=== PATIENT | male | born 1960 | race Caucasian/White ===

== ENCOUNTER 2020-07-23 13:35 | Observation (INO) | payer OTHER ==
[2020-07-23 18:08] LABS: BASO % 1.7 % (0-2.0); EOS % 1.3 % (0-4.5); HEMATOCRIT 42.2 % (35.4-49); HEMOGLOBIN 14.7 GM/dL (11.7-16.9); LYMPH % 17.2 % (8-40); MEAN CELL VOLUME 91.5 fl (80-96); MEAN PLT VOLUME 9.6 fl (7.5-11.1); MONO % 6.1 % (3.8-10.2); NEUT % 73.7 % (42.8-82.8); PLATELET COUNT 220 K/MM3 (134-434); RBC 4.61 M/mm3 (4.00-5.60); RDW 13.4 % (11.9-15.9); WHITE BLOOD COUNT 6.3 K/mm3 (4.0-10.0)
[2020-07-23 18:18] LABS: CHLORIDE 106 mmol/L (98-107); SODIUM 139 mmol/L (136-145)
[2020-07-23 18:21] LABS: ALBUMIN 4.2 g/dl (3.4-5.0); ANION GAP 7 MMOL/L (8-16); BLOOD UREA NITROGEN 12.2 mg/dL (7-18); CALCIUM 9.6 mg/dL (8.5-10.1); CO2 27 mmol/L (21-32); GLUCOSE,RANDOM 91 mg/dL (74-106); MAGNESIUM 2.6 mg/dL (1.8-2.4)
[2020-07-23 18:24] LABS: CREATININE 0.7 mg/dL (0.55-1.3); SGOT/AST 26 U/L (15-37); SGPT/ALT 69 U/L (13-61)
[2020-07-23 18:26] LABS: TOT PROT 7.3 g/dl (6.4-8.2)
[2020-07-23 18:27] LABS: ALK PHOS 101 U/L (45-117)
[2020-07-23] MEDS ORDERED: ACETAMINOPHEN 325 MG TABLET (FP) PO PRN (20:48)
[2020-07-24 03:43] VITALS: BMI 26.0
[2020-07-24 07:48] LABS: HEMATOCRIT 41.3 % (35.4-49); HEMOGLOBIN 14.6 GM/dL (11.7-16.9); MCH 32.4 pg (25.7-33.7); MCHC 35.5 g/dl (32.0-35.9); MEAN CELL VOLUME 91.4 fl (80-96); MEAN PLT VOLUME 9.1 fl (7.5-11.1); PLATELET COUNT 211 K/MM3 (134-434); RBC 4.52 M/mm3 (4.00-5.60); RDW 13.2 % (11.9-15.9); WHITE BLOOD COUNT 5.7 K/mm3 (4.0-10.0)
[2020-07-24 08:00] LABS: CHLORIDE 106 mmol/L (98-107); SODIUM 138 mmol/L (136-145)
[2020-07-24 08:06] LABS: ANION GAP 4 MMOL/L (8-16); BLOOD UREA NITROGEN 11.6 mg/dL (7-18); CALCIUM 9.3 mg/dL (8.5-10.1); CO2 29 mmol/L (21-32)
[2020-07-24 08:07] LABS: MAGNESIUM 2.5 mg/dL (1.8-2.4)
[2020-07-24 08:10] LABS: CREATININE 0.7 mg/dL (0.55-1.3); PHOSPHOROUS 4.1 mg/dL (2.5-4.9)
[2020-07-24 08:26] LABS: GLUCOSE,RANDOM 105 mg/dL (74-106)
[2020-07-24] MEDS ORDERED: TAMSULOSIN HCL 0.4 MG CAP PO SCH (08:30)
[2020-07-24 15:05] VITALS: BP 124/64; PULSE 80; TEMP 97.9
[2020-07-24] MEDS ORDERED: ATORVASTATIN CA 80 MG TABLET (FP) PO SCH (22:00)
== END 2020-07-24 15:08 | disposition home or self-care (01) ==
LOC: JER 13:35 → JERBED 18:56 → INTOOBSV 18:56 → J4W 07-24 02:46
PROVIDERS: ADMIT Internal Medicine; ATTEND Internal Medicine
DX: R00.2 Palpitations (principal); R06.02 Shortness of breath; R42 Dizziness and giddiness; E78.5 Hyperlipidemia, unspecified; N40.0 Benign prostatic hyperplasia without lower urinary tract symptoms
CPT/HCPCS: 36415; 71046-TC-FY; 80048; 80053; 82550; 82962; 83735; 84100; 84443; 84484; 85025; 85027; 93005; 93010; 99285-25; C9803; G0378; U0003; U0005

== ENCOUNTER 2022-01-17 11:29 | Emergency (ER) | payer OTHER ==
[2022-01-17 11:49] VITALS: BMI 27.2
[2022-01-17 12:24] LABS: BASO % 0.5 % (0-2.0); EOS % 0.5 % (0-4.5); HEMATOCRIT 43.7 % (35.4-49); HEMOGLOBIN 15.1 GM/dL (11.7-16.9); LYMPH % 26.7 % (8-40); MCH 31.6 pg (25.7-33.7); MCHC 34.6 g/dl (32.0-35.9); MEAN CELL VOLUME 91.4 fl (80-96); MEAN PLT VOLUME 8.6 fl (7.5-11.1); MONO % 6.2 % (3.8-10.2); NEUT % 66.1 % (42.8-82.8); PLATELET COUNT 195 10^3/uL (134-434); RBC 4.79 M/mm3 (4.00-5.60); RDW 14.2 % (11.9-15.9); WHITE BLOOD COUNT 5.1 K/mm3 (4.0-10.0)
[2022-01-17 12:36] LABS: ACTIVATED PTT 31.1 SECONDS (25.2-36.5); INR 1.1 (0.83-1.09); PROTHROMBIN TIME (PATIENT) 12.7 SEC (9.7-13.0)
[2022-01-17 12:54] LABS: CALCIUM 9.7 mg/dL (8.5-10.1)
[2022-01-17 12:55] LABS: ALBUMIN 4.5 g/dl (3.4-5.0); BLOOD UREA NITROGEN 9.6 mg/dL (7-18)
[2022-01-17 12:58] LABS: CREATININE 0.9 mg/dL (0.55-1.3)
[2022-01-17 12:59] LABS: TOT PROT 7.7 g/dl (6.4-8.2)
[2022-01-17] MEDS ORDERED: FAMOTIDINE 20 MG/50 ML IVPB 20 MG/50 ML MG IVPB ONE ×2 (13:02→13:56)
[2022-01-17] MEDS ORDERED: ACETAMINOPHEN 1000 MG/100 ML BAG IVPB ONE (13:02)
[2022-01-17] MEDS ORDERED: ACETAMINOPHEN INJECTION 100 ML IVPB ONE (13:56)
[2022-01-17 15:53] VITALS: BP 127/82; PULSE 75; RESP 20; TEMP 98
== END 2022-01-17 15:57 | disposition home or self-care (01) ==
LOC: JER 11:29
PROC: 3E033GC Introduction of Other Therapeutic Substance into Peripheral Vein, Percutaneous Approach (ICD-10-PCS; principal; 2022-01-17)
DX: R07.2 Precordial pain (principal); R00.2 Palpitations
CPT/HCPCS: 36415; 71046-TC-FY; 80053; 84484; 85025; 85379; 85610; 85730; 93005; 93010; 99285-25